=== PATIENT | female | born 2000 ===

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

== ENCOUNTER 2022-03-23 12:25 | Emergency (ER) | payer BC ==
[2022-03-23 14:54] LABS: CARBON DIOXIDE,CO2 24.8 mmol/L (21.0-32.0)
== END 2022-03-23 15:16 | disposition home or self-care (01) ==
LOC: MW.ED 12:25
DX: O26.892 Other specified pregnancy related conditions, second trimester (principal); R10.30 Lower abdominal pain, unspecified; Z3A.18 18 weeks gestation of pregnancy; Z88.0 Allergy status to penicillin; Z88.8 Allergy status to other drugs, medicaments and biological substances
CPT/HCPCS: 36415; 80053; 81003; 83690; 85025; 99283; 99284

== ENCOUNTER 2022-08-24 06:20 | Inpatient (IN) | payer BC ==
[2022-08-24] MEDS ORDERED: Ondansetron 4 MG/2 ML SDV IVPUSH PRN (07:27)
[2022-08-24] MEDS ORDERED: Sodium Chloride 0.9% 20 ML SDV IV PRN (07:27)
[2022-08-24] MEDS ORDERED: Carboprost Tromethamine 250 MCG/1 ML Amp IM PRN (07:27)
[2022-08-24] MEDS ORDERED: Tranexamic Acid 1,000 MG in Sodium Chloride 0.9% 100 ML IV PRN ×2 (07:27→15:18)
[2022-08-24] MEDS ORDERED: Water For Irrigation,Sterile 1,000 ML Container IRR PRN (07:27)
[2022-08-24] MEDS ORDERED: Methylergonovine 0.2 MG/1 ML Amp IM PRN ×2 (07:27→15:18)
[2022-08-24] MEDS ORDERED: Butorphanol 1 MG/ML SDV IVPUSH PRN (07:27)
[2022-08-24] MEDS ORDERED: Misoprostol 200 MCG Tab PO PRN (07:27)
[2022-08-24] MEDS ORDERED: Lidocaine 1% 50 ML MDV INJECT PRN (07:27)
[2022-08-24] MEDS ORDERED: Sodium Chloride 0.9% 2.5 ML Syringe FLUSH PRN (07:27)
[2022-08-24] MEDS ORDERED: Sodium Chloride 0.9% 10 ML Syringe FLUSH PRN (07:27)
[2022-08-24] MEDS ORDERED: Oxytocin/0.9 % Sodium Chloride 30 UNIT/500 ML BAG IV SCH ×2 (07:30→12:45)
[2022-08-24] MEDS: Lactated Ringers 1,000 ML IV SCH ×3 (08:00→12:47)
[2022-08-24] MEDS ORDERED: Ropivacaine/PF 400 MG/200 ML PCA ONE (08:35)
[2022-08-24] MEDS ORDERED: ePHEDrine 50 MG/ML SDV IVPUSH PRN ×2 (08:53)
[2022-08-24] MEDS ORDERED: Phenylephrine HCl In 0.9% NaCl 1 MG/10 ML Vial IVPUSH PRN (08:53)
[2022-08-24] MEDS ORDERED: Phenylephrine HCl In 0.9% NaCl 1 MG/10 ML Vial IVPUSH SCH (09:00)
[2022-08-24] MEDS ORDERED: Ropivacaine HCl/PF 400 MG in Premix Bag 1 BAG EPIDUR SCH (09:00)
[2022-08-24] MEDS ORDERED: Misoprostol 25 MCG (1/4 of 100 MCG) Tab VAG PRN ×2 (12:42)
[2022-08-24] MEDS ORDERED: Terbutaline 1 MG/ML SDV SUBCUT PRN (12:42)
[2022-08-24] MEDS ORDERED: Bisacodyl 10 MG Supp RECTAL PRN (15:18)
[2022-08-24] MEDS ORDERED: Acetaminophen 500 MG Tab PO PRN (15:18)
[2022-08-24] MEDS ORDERED: Witch Hazel Medicated Pads 40/Jar TOP PRN (15:18)
[2022-08-24] MEDS ORDERED: Benzocaine/Menthol 20%-0.5% Spray 78 GM Cannister TOP PRN (15:18)
[2022-08-24] MEDS ORDERED: Ibuprofen 400 MG Tab PO PRN (15:18)
[2022-08-24] MEDS ORDERED: Lanolin 100% Cream 7 GM Tube TOP PRN (15:18)
[2022-08-24] MEDS ORDERED: Docusate Sodium 100 MG Cap PO PRN (15:18)
[2022-08-24] MEDS: Acetaminophen 500 MG Tab PO PRN (20:00)
[2022-08-24] MEDS: Ibuprofen 800 MG Tab PO PRN (20:04)
[2022-08-25] MEDS: Ibuprofen 800 MG Tab PO PRN (08:47)
[2022-08-25] MEDS: Acetaminophen 500 MG Tab PO PRN (08:49)
== END 2022-08-25 18:26 | disposition home or self-care (01) | DRG 560 ==
LOC: MW.OBCHECK 06:20 → MW.OB 06:21 → MW.OBCHECK 07:26 → MW.OB 07:29 → OBSVTOIN 15:18 → MW.OB 17:00
PROVIDERS: ADMIT Obstetrics & Gynecology; ATTEND Obstetrics & Gynecology
PROC: 10E0XZZ Delivery of Products of Conception, External Approach (ICD-10-PCS; principal; 2022-08-24)
PROC: 10907ZC Drainage of Amniotic Fluid, Therapeutic from Products of Conception, Via Natural or Artificial Opening (ICD-10-PCS; 2022-08-24)
PROC: 3E0R3BZ Introduction of Anesthetic Agent into Spinal Canal, Percutaneous Approach (ICD-10-PCS; 2022-08-24)
DX: O99.02 Anemia complicating childbirth (principal); O98.52 Other viral diseases complicating childbirth; D64.9 Anemia, unspecified; Z3A.40 40 weeks gestation of pregnancy; Z37.0 Single live birth; B00.9 Herpesviral infection, unspecified; O76 Abnormality in fetal heart rate and rhythm complicating labor and delivery; Z20.822 Contact with and (suspected) exposure to COVID-19; Z88.0 Allergy status to penicillin; Z88.5 Allergy status to narcotic agent
CPT/HCPCS: 36415; 51702; 59025; 59409; 82803; 85014; 85018; 85027; 86592; 86850; 86900; 86901; A9270-GY; J2405; J2590; J2795; J7120; U0002

== ENCOUNTER 2025-03-07 07:35 | Emergency (ER) | payer BC ==
[2025-03-07] MEDS ORDERED: Sodium Chloride 0.9% 20 ML SDV IV PRN (08:11)
[2025-03-07] MEDS ORDERED: Sodium Chloride 0.9% 2.5 ML Syringe FLUSH PRN (08:11)
[2025-03-07] MEDS ORDERED: Sodium Chloride 0.9% 10 ML Syringe FLUSH PRN (08:11)
[2025-03-07 08:35] LABS: BASOPHILS ABSOLUTE AUTO 0.03 K/uL (0.00-0.20); BASOPHILS PERCENT AUTO 0.5 % (0.0-1.0); EOSINOPHILS ABSOLUTE AUTO 0.22 K/uL (0.00-0.45); EOSINOPHILS PERCENT AUTO 3.9 % (0.0-6.0); HEMATOCRIT 34.9 % (37.0-47.0); HEMOGLOBIN 11.8 g/dL (12.0-16.0); IMMATURE GRAN ABSOLUTE AUTO 0.02 K/uL (0.00-0.05); IMMATURE GRAN PERCENT AUTO 0.4 % (0.0-0.4); LYMPHOCYTES ABSOLUTE AUTO 2.06 K/uL (1.00-4.80); LYMPHOCYTES PERCENT AUTO 36.7 % (24.0-44.0); MEAN CORPUSCULAR HEMOGLOBIN 31.2 pg (28.0-32.0); MEAN CORPUSCULAR HGB CONC 33.8 g/dL (32.0-36.0); MEAN CORPUSCULAR VOLUME 92.3 fL (83.0-99.0); MEAN PLATELET VOLUME 9.3 fL (9.4-12.3); MONOCYTES PERCENT AUTO 7.1 % (0.0-8.0); NEUTROPHILS ABSOLUTE AUTO 2.89 K/uL (1.80-7.70); NEUTROPHILS PERCENT AUTO 51.4 % (41.0-71.0); PLATELET COUNT,PLT 266 K/uL (150-400); RED BLOOD CELL COUNT 3.78 M/uL (4.10-5.30); WHITE BLOOD CELL COUNT,WBC 5.62 K/uL (3.9-11.3)
[2025-03-07] MEDS: Acetaminophen 500 MG Tab PO ONE (08:36)
[2025-03-07 09:00] LABS: A/G RATIO 1.6 (0.9-1.6); ALANINE AMINOTRANSFERASE,ALT 10 IU/L (14-63); ALBUMIN 4.1 g/dL (3.4-5.0); ALKALINE PHOSPHATASE 45 U/L (46-116); ASPARTATE AMNIOTRANSFERASE,AST 12 IU/L (15-37); BILIRUBIN TOTAL 0.5 mg/dL (0.2-1.0); BLOOD UREA NITROGEN,BUN 15 mg/dL (7.0-18.0); CALCIUM 8.4 mg/dL (8.5-10.1); CARBON DIOXIDE,CO2 28.9 mmol/L (21.0-32.0); CHLORIDE,CL 105 mmol/L (98-107); CREATININE 0.7 mg/dL (0.6-1.0); GLUCOSE RANDOM 90 mg/dL (74-106); LIPASE 28 U/L (16-77); MAGNESIUM 1.7 mg/dL (1.8-2.4); POTASSIUM,K 3.7 mmol/L (3.5-5.1); PROTEIN TOTAL,TP 6.6 g/dL (6.4-8.2); SODIUM,NA 140 mmol/L (136-145)
[2025-03-07 09:10] LABS: ESTIMATED GFR 125 mL/min (>60)
[2025-03-07] MEDS: Magnesium Oxide 400 MG Tab PO ONE (09:24)
[2025-03-07] MEDS: Cyclobenzaprine 10 MG Tab PO ONE (10:08)
[2025-03-07] MEDS: Ketorolac 30 MG/ML SDV IVPUSH ONE (10:11)
[2025-03-07] MEDS: Alum Hydrox/Mag Hydrox/Simeth 15 ML, Lidocaine 2% 5 ML PO ONE ×2 (10:14→10:17)
== END 2025-03-07 10:49 | disposition home or self-care (01) ==
LOC: MW.ED 07:35
DX: K21.00 Gastro-esophageal reflux disease with esophagitis, without bleeding (principal); M94.0 Chondrocostal junction syndrome [Tietze]; Z79.899 Other long term (current) drug therapy; Z88.1 Allergy status to other antibiotic agents; Z88.5 Allergy status to narcotic agent; Z88.8 Allergy status to other drugs, medicaments and biological substances
CPT/HCPCS: 36415; 71046; 80053; 83690; 83735; 84484; 84703; 85025; 93005; 96374; 99285; A9270; J1885; 99283